=== PATIENT | male | born 1945 | race Caucasian/White ===

== ENCOUNTER 2017-10-04 08:11 | Emergency (ER) | payer MEDICARE ==
[2017-10-04] MEDS ORDERED: FAMOTIDINE 20MG TAB 20 MG TAB ONE (08:33)
[2017-10-04] MEDS ORDERED: PREDNISONE 20 MG TABLET ONE (08:33)
== END 2017-10-04 08:53 | disposition home or self-care (01) ==
LOC: EDH 08:11
DX: R22.0 Localized swelling, mass and lump, head (principal); E11.9 Type 2 diabetes mellitus without complications; I10 Essential (primary) hypertension; E78.5 Hyperlipidemia, unspecified; Z87.891 Personal history of nicotine dependence
CPT/HCPCS: 82948